=== PATIENT | female | born 1955 | race Hispanic/Latino ===

== ENCOUNTER → 2025-03-03 | Outpatient (CLI) | payer MEDICARE ==
--- NOTE | 2025-03-03 14:48 | HMCIMG ---
EXAM: CR left elbow, 3 View. CLINICAL HISTORY: CONTRACTURE, LEFT ELBOW COMPARISON: None provided. FINDINGS: BONES: No acute fracture or aggressive appearing osseous lesion. JOINTS: The joint spaces appear within normal limits. No dislocation. No radiographic evidence of a joint effusion. SOFT TISSUES: The soft tissues are unremarkable. IMPRESSION: No acute osseous abnormality. /[place]
== END | disposition home or self-care (01) ==
LOC: RAH 11:43
PROVIDERS: ATTEND Internal Medicine
DX: M24.522 Contracture, left elbow (principal)
CPT/HCPCS: 73070

== ENCOUNTER → 2025-04-28 | Outpatient (CLI) | payer MEDICARE ==
--- NOTE | 2025-04-29 07:30 | HMCIMG ---
EXAMINATION: NONCONTRAST MRI OF THE LEFT SHOULDER. CLINICAL HISTORY: Suspected left shoulder impingement. COMPARISON: None provided. TECHNIQUE: Multiplanar, multisequence MR images of the left shoulder are submitted. FINDINGS: There is type I acromion with no subacromial spur. The coracoclavicular ligament is intact. There is mild acromioclavicular joint osteoarthritis and mild periosseous synovial thickening. There is mild subacromial-subdeltoid bursitis. The peritendinous soft tissues are normal. Moderate supraspinatus and anterior infraspinatus insertional tendinosis with partial thickness anterior supraspinatus bursal sided 0.3 cm footprint tear involving 25% of tendon thickness. Mild subscapularis insertional tendinosis. The teres minor tendon is intact without evidence of tendinopathy or tear. Mild subscapularis muscle fatty atrophy. The long head of the biceps tendon is normal in course and demonstrates moderate tendinosis of the intra-articular segment. Bicipital anchor is intact. There is normal bone marrow signal within the shoulder girdle without fracture, avascular necrosis, or osteomyelitis. The labrum is normal in bulk in signal. Mild rotator interval scarring with edema. Mild inferior capsular thickening and edema. The glenohumeral joint is intact. Mild joint effusion. IMPRESSION: 1. Moderate supraspinatus and anterior infraspinatus insertional tendinosis with partial thickness anterior supraspinatus bursal sided tear (0.3 cm, 25% of tendon thickness). 2. Moderate tendinosis of the intra-articular segment of the long head of biceps tendon. 3. Mild subacromial-subdeltoid bursitis and glenohumeral joint effusion. 4. Mild rotator interval scarring and inferior capsular thickening with edema, concerning for adhesive capsulitis. /[place]
== END | disposition home or self-care (01) ==
LOC: RAH 14:42
PROVIDERS: ATTEND Student in an Organized Health Care Education/Training Program
DX: M75.112 Incomplete rotator cuff tear or rupture of left shoulder, not specified as traumatic (principal); M19.012 Primary osteoarthritis, left shoulder; M75.42 Impingement syndrome of left shoulder; M62.512 Muscle wasting and atrophy, not elsewhere classified, left shoulder; M67.814 Other specified disorders of tendon, left shoulder; M75.52 Bursitis of left shoulder; M25.412 Effusion, left shoulder; M75.02 Adhesive capsulitis of left shoulder
CPT/HCPCS: 73221